=== PATIENT | male | born 1990 | race Caucasian/White ===

== ENCOUNTER 2019-11-17 11:18 | Emergency (ER) | payer OTHER, SELFPAY ==
--- NOTE | 2019-11-17 | XR_ITS ---
EXAMINATION: XR SHOULDER, RIGHT CLINICAL INFORMATION: Pain status-post injury. COMPARISON: None TECHNIQUE: AP external rotation and scapular Y views of the right shoulder are submitted. FINDINGS: Bony alignment and mineralization are normal. The glenohumeral joint is intact. The acromioclavicular interval is normal. The coracoclavicular interval is borderline increased, at approximately 13 mm. No fracture is seen. There is no soft tissue gas or foreign body. No right pneumothorax is seen. IMPRESSION: There is borderline widening of the right coracoclavicular interval, raising the possibility of a mild coracoclavicular separation injury. Please correlate clinically. No fracture is seen. The acromioclavicular and glenohumeral joints are intact.
[2019-11-17 11:34] VITALS: BP 121/90; PULSE 71; RESP 16; TEMP 36.8; O2SAT 97; BMI 34.4
--- NOTE | 2019-11-17 12:09 | ED_ITS ---
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) Pain Consistency: constant Location: right and upper extremity (shoulder) Severity scale (1-10): 10 Quality: aching Radiation: none Relieving factors: nothing Exacerbating factors: range of motion Associated symptoms: denies other symptoms Related Data Previous Rx's Medication Instructions Recorded ibuprofen 800 mg PO Q8H PRN #14 tab 11/17/19 oxycodone-acetaminophen [Percocet] 1 tab PO Q6H PRN #14 tab 11/17/19 Allergies Allergy/AdvReac Type Severity Reaction Status Date / Time No Known Allergies Allergy Verified 11/17/19 11:48 Review of Systems Review of Systems: Yes all other systems are reviewed and are negative Constitutional: Constitutional: Reports as per HPI Eyes: Eyes: Reports as per HPI ENT: Reports as per HPI Cardiovascular: Cardiovascular: Reports as per HPI, Denies cool extremities, Denies painful fingertips, Denies chest pain, Denies edema, Denies lightheadedness, Denies radiating jaw, neck or arm pain, Denies palpitations and Denies dyspnea Respiratory: Respiratory: Reports as per HPI and Denies dyspnea Gastrointestinal: Gastrointestinal: Reports as per HPI Genitourinary: Genitourinary: Reports as per HPI Musculoskeletal: Musculoskeletal: Reports as per HPI, Denies back pain, Denies atrophy, Denies deformity, Denies joint swelling, Reports limited range of motion (to r shoulder due to pain ), Denies loss of height, Denies muscle weakness, Denies numbness, Denies radiating pain into limb, Denies stiffness and Denies tingling Integumentary/Breasts: Skin/Breast: Reports as per HPI Neurologic: Reports as per HPI, Denies numbness and Denies tingling Psychiatric: Psychiatric: Reports as per HPI Endocrine: Endocrine: Reports as per HPI and Denies palpitations Allergic/Immunologic: Allergic/Immunologic: Reports as per HPI PMFSH Past Medical History Medical History No known health problems No known health problems Social History Social History Alcohol intake: never Smoking Status: Current every day smoker Use of substances other than those prescribed or required for medical reasons: Yes Substance Use Type: Marijuana Substance Use Frequency: Daily Last Used Substance: Hours (ago) Any prior treatment program specific to substance use: No Advance Directives: No Advance Directives Information Provided: No Physical Exam Vital Signs and I&O and Narrative: Vital Signs and I&O: Vital Signs Temp 98.2 F 11/17/19 11:34 Pulse 71 11/17/19 11:34 Resp 16 11/17/19 11:34 BP 121/90 H 11/17/19 11:34 Pulse Ox 97 11/17/19 11:34 Intake & Output 11/16/19 11/17/19 11/17/19 18:59 06:59 18:59 Weight 99.79 kg Body Mass Index 34.4 Const: General: cooperative, healthy appearing, no acute distress, well developed, alert, awake and Physically active Nutritional Appearance: average body habitus Orientation/consciousness: patient oriented x3 Limitations: no limitations HENMT: Head: Yes normal to inspection Ears: hearing grossly normal bilaterally General nose exam: Normal external nose present Mouth: Normal oral and palatal mucosa present and moist mucous membranes Eyes: General: appearance normal, both eyes and all related structures Visual Gonzalez: normal visual gonzalez by confrontation Alignment and Position: alignment normal Pupils: Equal, round and reactive pupils present EOM: EOMs intact bilaterally Neck: Neck: Yes normal visual inspection, Yes full ROM, No no lymphadenopathy, No no meningeal signs, Yes trachea midline and Yes supple Resp: Effort & Inspection: normal respiratory effort Auscultation: clear to auscultation bilaterally Cardio: Rate: regular rate Rhythm: regular rhythm Heart sounds: S1 normal heart sound present and S2 normal heart sound present Peripheral pulses: Peripheral pulses 2+ throughout Back/Spine/Pelvis: Cervical Spine: cervical ROM normal Thoracic/Lumbar Spine: thoraco-lumbar ROM normal Skin: General skin exam: no rashes or lesions noted, elasticity normal and turgor normal Neuro: General: patient oriented x3, gait normal, moves all extremities, No no meningeal signs and no focal motor deficits Cranial nerves: Yes Equal, round and reactive pupils present Gait exam (Neuro): Normal gait present Extrem: General: Yes normal to inspection Right upper extremity: shoulder/upper arm Details: normal to inspection, tenderness and abnormal ROM Details: pain with active ROM Details: in ABduction, in extension, in flexion, in internal rotation and external rotation-; no deformity MDM - Extremity (Nontraumatic) Imaging Data right shoulder xray: Attestation: I personally reviewed and interpreted this imaging study as follows: Radiologist's impression: IMPRESSION: There is borderline widening of the right coracoclavicular interval, raising the possibility of a mild coracoclavicular separation injury. Please correlate clinically. No fracture is seen. The acromioclavicular and glenohumeral joints are intact. Discharge Plan Discharge Clinical Impression: Dislocated shoulder Qualifiers: Encounter type: initial encounter Laterality: right Qualified Code(s): S43.004A - Unspecified dislocation of right shoulder joint, initial encounter Sprain of right shoulder Qualifiers: Encounter type: initial encounter Shoulder sprain type: unspecified sprain Qualified Code(s): S43.401A - Unspecified sprain of right shoulder joint, initial encounter Patient Disposition: Home, Self-Care Instructions: Shoulder Sprain (ED), Shoulder Immobilizer (ED) Prescriptions: New ibuprofen 800 mg tablet 800 mg PO Q8H PRN (Reason: pain) Qty: 14 RF: 0 oxycodone-acetaminophen [Percocet] 5-325 mg tablet 1 tab PO Q6H PRN (Reason: pain) Qty: 14 RF: 0 Referrals: Benja Ruvalcaba MD [Physician] - 2 weeks Stand Alone Forms: Work/School Release Interventions: ED Discharge Assessment Last Done: 11/17/19 14:25 Discharge Date/Time: 11/17/19 14:26 Print Language: Citizen Of [place]
== END 2019-11-17 14:26 | disposition home or self-care (01) ==
PROVIDERS: Emergency Provider Emergency Medicine
DX: S43.401A Unspecified sprain of right shoulder joint, initial encounter (principal); X58.XXXA Exposure to other specified factors, initial encounter; F17.200 Nicotine dependence, unspecified, uncomplicated; Y93.9 Activity, unspecified; Y92.9 Unspecified place or not applicable; Y99.0 Civilian activity done for income or pay
CPT/HCPCS: 73030; 99283; 99284

== ENCOUNTER 2022-05-21 22:42 | Emergency (ER) | payer OTHER, SELFPAY ==
[2022-05-21 22:56] VITALS: BP 167/102; PULSE 71; RESP 18; TEMP 36.6; O2SAT 96; BMI 36.5
--- NOTE | 2022-05-22 00:10 | ED_ITS ---
HPI - Dental/Oral General Chief complaint: Dental/Oral Stated complaint: tooth pain Time Seen by Provider: 05/22/22 00:01 Source: patient Mode of arrival: ambulatory Limitations: no limitations History of Present Illness HPI Narrative: Patient comes to the emergency room complaining of dental pain right mandibular side. Patient states that earlier today he was seen by his dentist, patient has a procedure planned. Today he was prescribed penicillin ibuprofen. Patient states that the pain is not well controlled and cannot sleep. 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 Patient already on penicillin. Today is day 1 of antibiotic treatment. Teeth map: 1. Related Data Previous Rx's Medication Instructions Recorded ibuprofen 800 mg tablet 800 mg PO Q8H PRN pain #14 tabs 11/17/19 oxycodone-acetaminophen 5 mg-325 1 tab PO Q6H PRN pain #14 tabs 11/16/20 mg tablet (Percocet) oxycodone 5 mg tablet 5 mg PO BID PRN pain #7 tabs 05/22/22 Allergies Allergy/AdvReac Type Severity Reaction Status Date / Time No Known Allergies Allergy Verified 05/21/22 23:00 Review of Systems Review of Systems: Constitutional : No Weight loss, No Fever, No Chills, No Night Sweats, No Fatigue, No Malaise ENT/Mouth : Complaining of dental pain, No Hearing loss, No Ear Pain, No Nasal Congestion, No Sinus Pain, No Hoarseness, No sore throat, No Rhinorrhea, No Swallowing Difficulty Eyes: No Eye Pain, No Swelling, No Redness, No Foreign Body, No Discharge, No Vision Changes Cardiovascular : No Chest Pain, No SOB, No Dyspnea on Exertion, No Orthopnea, No Edema, No Palpitations Respiratory : No Cough, No Sputum, No Wheezing, No Smoke Exposure, No Dyspnea Gastrointestinal : No Nausea, No Vomiting, No Diarrhea, No Constipation, No abdominal Pain, No Hematochezia, No Melena Genitourinary : no irregular bleeding, No Dysuria, No Urinary Frequency, No Hematuria, No Urinary Incontinence, No Urgency, No Flank Pain, No Urinary Flow Changes, No Hesitancy Musculoskeletal : No joint pain, No Myalgias, No Joint Swelling Skin : No Skin Lesions, No rash Neuro : No Weakness, No Numbness, No Paresthesias, No Loss of Consciousness, No Dizziness, No Headache Psych : No Anxiety/Panic, No Depression, No SI/HI/AH/VH, No Social Issues, Heme/Lymph: No Bruising, No Bleeding,No Lymphadenopathy Endocrine : No Polyuria, No Polydipsia, No Temperature Intolerance [facility] Past Medical History Medical History No known health problems No known health problems Social History Social History Alcohol intake: never Substance Use Type: Marijuana Advance Directives: No Advance Directives Information Provided: Yes Physical Exam Vital Signs: Vital Signs: Last Vital Signs Temp 97.9 F 05/21/22 22:56 Pulse 71 05/21/22 22:56 Resp 18 05/21/22 22:56 BP 167/102 H 05/21/22 22:56 Pulse Ox 96 05/21/22 22:56 O2 Del Method Room Air 05/21/22 22:56 BMI result Body Mass Index 36.5 Const: Other: Appearance: Alert. Oriented X3. No acute distress. Eyes: Pupils equal, round and reactive to light. ENT: Pharynx normal. Mentation in the right mandibular side. No drainable abscess visualized. Neck: Normal inspection. Neck supple. No lymph nodes noted. No crepitus CVS: Normal heart rate and rhythm. Pulses normal. Normal S1 and S2 Respiratory: No respiratory distress. Breath sounds normal. No Wheezing. No rales Abdomen: Soft and nontender. No rigidity. No distention. Skin: Skin warm and dry. Normal skin color. Normal skin turgor. Extremities: No lower extremity edema. No Lacerations. No Rash Neuro: Oriented X 3. No motor deficit. No sensory deficit. Moving all extremities. No slurred speech. CN 2 through 12 grossly intact Psych: calm, cooperative, normal affect Medical Decision Making Medical Decision Making MDM Narrative: Patient was given 1 dose of p.o. oxycodone, patient instructed to avoid taking narcotics, tried to stick to ibuprofen. Discharge Plan Discharge Clinical Impression: Toothache Patient Disposition: Home, Self-Care Instructions: Toothache (ED) Additional Instructions: Please follow-up with your primary care physician tomorrow. If you have any worsening or new symptoms, please return to the emergency room or call 911 Prescriptions: New oxycodone 5 mg tablet 5 mg PO BID PRN (Reason: pain) Qty: 7 0RF Rx Instructions: Partial Fill upon patient request. No Action ibuprofen 800 mg tablet 800 mg PO Q8H PRN (Reason: pain) Qty: 14 0RF oxycodone-acetaminophen [Percocet] 5-325 mg tablet 1 tab PO Q6H PRN (Reason: pain) Qty: 14 0RF
[2022-05-22] MEDS: oxyCODONE HCl Immed Release 5 MG TABLET PO (00:34)
== END 2022-05-22 00:42 | disposition home or self-care (01) ==
PROVIDERS: Emergency Provider Emergency Medicine
DX: K08.89 Other specified disorders of teeth and supporting structures (principal)
CPT/HCPCS: 99283